=== PATIENT | female | born 1980 | race Caucasian/White ===

== ENCOUNTER 2016-11-26 17:29 | Emergency (ER) | payer SELFPAY ==
[~2016-11-26] VITALS: Ht 160 cm; Wt 172.4 kg
[~2016-11-26 17:29] MED LIST: HYDR-707 PO; PRCD5U PO; TRM50T PO
[2016-11-26] MEDS ORDERED: NS IV 1000 ML 1,000 ML IV ONE (18:28)
--- NOTE | 2016-11-26 18:28 | ED Headache ---
General Chief Complaint: Head/Cervical Problems Stated Complaint: MIGRAINE X2 DAYS Nursing Triage Note: AMB TO ED C/O HEADACHE FOR 3 DAYS TOOK IBUPROFEN TODAY. Nursing Sepsis Screen: No Definite Risk History of Present Illness Time seen by provider: 18:20 Initial Comments Patient reports history of migraines, usually resolves with naproxen. She is currently out of that prescription. Tried ibuprofen 800 mg 2 hours prior to arrival with no resolution of her symptoms. Timing/Duration: constant Severity/Quality: moderate Location: frontal Prior Headaches/Recent Trauma: no recent headache/trauma Associated Symptoms: denies symptoms, No seizures, No sinus infection, No vision changes, other (photophobia) Allergies and Home Medications Allergies Coded Allergies: No Known Allergies (Unverified Allergy, Mild, 01/16/09) Home Medications Naproxen 500 Mg Tablet, 500 MG PO Q12H, #30 Ref 0 Prescribed by: OSWALDO PINO on 11/26/161934 Constitutional: no symptoms reported, see HPI Eyes: See HPI, Photophobia All Other Systems Reviewed Negative Unless Noted: Yes Past Tlxqfzc-Pcokqc-Vttrpj Hx Patient Social History Alcohol Use: Denies Use Recreational Drug Use: No Smoking Status: Current Everyday Smoker Recent Foreign Travel: No Contact w/Someone Who Travel: No Recent Infectious Disease Expo: No Recent Hopitalizations: No Immunizations Up To Date Tetanus Booster (TDap): Less than 5yrs Seasonal Allergies Seasonal Allergies: No Surgeries HX Surgeries: No Respiratory Hx Respiratory Disorders: No Cardiovascular Hx Cardiac Disorders: No Neurological Hx Neurological Disorders: No Reviewed Nursing Assessment Reviewed/Agree w Nursing PMH: Yes Physical Exam Vital Signs Vital Sign - Last 12Hours 11/26/16 17:52 Temp 96.2 Pulse 62 Resp 18 B/P (MAP) 138/80 Pulse Ox 96 Capillary Refill : Less Than 3 Seconds General Appearance: WD/WN, no apparent distress HEENT: PERRL/EOMI, normal ENT inspection, TMs normal, pharynx normal, photophobia (moderate) Neck: non-tender, full range of motion, supple, normal inspection Cardiovascular: normal peripheral pulses, regular rate, rhythm, no murmur Respiratory: chest non-tender, lungs clear, normal breath sounds Gastrointestinal: normal bowel sounds, non tender, soft, other (morbidly obese) Psychiatric: alert, oriented x 3 Crainal Nerves: normal hearing, normal speech, PERRL Coordination/Gait: normal finger to nose, normal gait, negative Romberg's sign Motor/Sensory: no motor deficit, no sensory deficit, no pronator drift Skin: normal color, warm/dry Progress/Results/Core Measures Results/Orders My Orders Orders - OSWALDO PINO Diphenhydramine Injection (Benadryl Inje (11/26/16 18:30) Ketorolac Injection (Toradol Injection) (11/26/16 18:30) Prochlorperazine Injection (Compazine In (11/26/16 18:30) Saline Lock/Iv-Start (11/26/16 18:28) Ns Iv 1000 Ml (Sodium Chloride 0.9%) (11/26/16 18:28) Medications Given in ED Current Medications Medications Dose Ordered Sig/Merari Route Start Time Stop Time Status Last Admin Dose Admin Diphenhydramine HCl 50 mg ONCE ONCE IVP 11/26/16 18:30 11/26/16 18:31 DC 11/26/16 18:42 50 MG Ketorolac Tromethamine 30 mg ONCE ONCE IVP 11/26/16 18:30 11/26/16 18:31 DC 11/26/16 18:43 30 MG Prochlorperazine Edisylate 10 mg ONCE ONCE IV 11/26/16 18:30 11/26/16 18:31 DC 11/26/16 18:40 10 MG Sodium Chloride 1,000 ml @ 0 mls/hr Q0M ONCE IV 11/26/16 18:28 11/26/16 18:30 DC 11/26/16 18:39 1,000 MLS/HR Vital Signs/I&O Vital Sign - Last 12Hours 11/26/16 11/26/16 17:52 19:40 Temp 96.2 Pulse 62 72 Resp 18 18 B/P (MAP) 138/80 Pulse Ox 96 99 Blood Pressure Mean: 99 Progress Note : Time: 18:20 Progress Note Initial evaluation completed, Toradol 30 mg, Compazine 10 mg, and Benadryl 50 mg IV 1929 patient reports improvement in her headache symptoms, she was able to sleep approximately 30 minutes. Departure Impression Impression: Primary Impression: Headache Qualified Codes: G44.211 - Episodic tension-type headache, intractable Disposition: 01 HOME, SELF-CARE Condition: Improved Departure-Patient Inst. Decision time for Depature: 17:00 Referrals: NO,LOCAL PHYSICIAN (PCP) Primary Care Physician Patient Instructions: Migraine Headache (DC), Headache, Adult (DC) Add. Discharge Instructions: Increase water intake. Use naproxen or Excedrin for headaches. Return to emergency department if symptoms worsen, acute mental status changes, or new problems. All discharge instructions reviewed with patient and/or family. Voiced understanding. Scripts Naproxen (Naproxen) 500 Mg Tablet 500 MG PO Q12H, #30 TAB 0 Refills Prov: OSWALDO PINO 11/26/16 OSWALDO PINO Nov 26, 2016 18:28
[2016-11-26] MEDS ORDERED: PROCHLORPERAZINE 10 MG/2ML INJ (COMPAZINE) IV ONE (18:30)
[2016-11-26] MEDS ORDERED: KETOROLAC 30 MG/ML VIAL IVP ONE (18:30)
[2016-11-26] MEDS ORDERED: diphenhydrAMINE 50 MG/ML INJ (BENADRYL) IVP ONE (18:30)
[2016-11-26] MEDS ORDERED: NAPR500T3 PO (19:35)
[2016-11-26 19:40] VITALS: BP 134/90
== END 2016-11-26 19:40 | disposition home or self-care (01) ==
LOC: EDUNIT# 17:29 → ER 17:31
DX: R51 Headache (principal); F17.210 Nicotine dependence, cigarettes, uncomplicated
CPT/HCPCS: 96374; 96375

== ENCOUNTER 2017-04-12 08:49 | Emergency (ER) | payer SELFPAY ==
[~2017-04-12 08:49] MED LIST changes: +NAPR500T4 PO
--- OUTSIDE RECORDS SUMMARY | 2017-04-12 08:54 | XMS REPORT ---
Author Author ZACH DUVALL [facility] Address [address] [place] [address] Care Team Providers Care Employment Specialist/Program Manager Name Role Phone ZACH DUVALL Unavailable PROBLEMS Type Condition ICD9-CM Code TMR91-BI Code Onset Dates Condition Status SNOMED Code Problem Acute upper respiratory infections of unspecified site 465.9 Active 99259027 Problem Acute bronchitis 466.0 Active 58302661 Problem Cervicalgia M54.2 Active 30298147 Problem Intractable migraine without status migrainosus, unspecified migraine type G43.919 Active 377588221 Problem Migraine, unspecified without mention of intractable migraine without mention of status migrainosus 346.90 Active 81000926 Problem Acute sinusitis, unspecified 461.9 Active 52767310 Problem Nonintractable migraine, unspecified migraine type G43.009 Active 11483624 Problem Depressive disorder, not elsewhere classified 311 Active 04564107 ALLERGIES Unknown Allergies SOCIAL HISTORY No smoking Hx information available PLAN OF CARE VITAL SIGNS MEDICATIONS Unknown Medications RESULTS No Results PROCEDURES No Known procedures IMMUNIZATIONS No Known Immunizations
--- OUTSIDE RECORDS SUMMARY | 2017-04-12 08:54 | XMS REPORT ---
Author Author SINDI THAKUR Organization [employer] Address Unknown Phone Unavailable Care Team Providers Care Agent Producer Name Role Phone SINDI THAKUR CP Unavailable Allergies No Known Allergies Problems Problem Type Condition Code Onset Dates Condition Status Problem Migraine, unspecified without mention of intractable migraine without mention of status migrainosus 346.90 Active Problem Intractable migraine without status migrainosus, unspecified migraine type G43.919 Active Problem Nonintractable migraine, unspecified migraine type G43.009 Active Problem Cervicalgia M54.2 Active Problem Acute bronchitis 466.0 Active Problem Depressive disorder, not elsewhere classified 311 Active Problem Acute upper respiratory infections of unspecified site 465.9 Active Problem Acute sinusitis, unspecified 461.9 Active Medications No Known Medications Results No Known Results Summary Purpose [employer] Submission
--- OUTSIDE RECORDS SUMMARY | 2017-04-12 08:55 | XMS REPORT ---
Author Author SINDI THAKUR [facility] Address [address] [place] [address] Care Team Providers Care Shift Lab Technician Name Role Phone SINDI THAKUR Unavailable PROBLEMS Type Condition ICD9-CM Code PGG80-UW Code Onset Dates Condition Status SNOMED Code Assessment Cervicalgia M54.2 Feb, Active 18175645 Problem Depressive disorder, not elsewhere classified 311 Active 16773941 Problem Migraine, unspecified without mention of intractable migraine without mention of status migrainosus 346.90 Active 50674840 Problem Cervicalgia M54.2 Active 81066657 Problem Intractable migraine without status migrainosus, unspecified migraine type G43.919 Active 127081530 Problem Acute sinusitis, unspecified 461.9 Active 69153069 Problem Acute bronchitis 466.0 Active 56840634 Problem Nonintractable migraine, unspecified migraine type G43.009 Active 91222600 Problem Acute upper respiratory infections of unspecified site 465.9 Active 56420142 ALLERGIES Substance Reaction Event Type Date Status N.K.D.A. Unknown Non Drug Allergy Feb, Unknown SOCIAL HISTORY No smoking Hx information available PLAN OF CARE VITAL SIGNS Height 64 in 2016-03-07 Weight 362.8 lbs 2016-03-07 Heart Rate 88 bpm 2016-03-07 Respiratory Rate 18 2016-03-07 BMI 62.27 kg/m2 2016-03-07 Blood pressure systolic 122 mmHg 2016-03-07 Blood pressure diastolic 64 mmHg 2016-03-07 MEDICATIONS Medication Instructions Dosage Frequency Start Date End Date Duration Status Naproxen 500 MG Orally Twice a day 1 tablet 12h Active Migraine Formula 250-250-65 MG Orally every 6 hrs 2 tablets as needed 6h Active Cyclobenzaprine HCl 5 mg Orally Three times a day 1 tablet 8h Feb, Mar, 30 day(s) Active Xanax 0.5 MG Orally one time for mri 1 tablet Feb, Active RESULTS No Results PROCEDURES Procedure Date Ordered Related Diagnosis Body Site Office Visit, Est Pt., Level 3 Mar 07, 2016 IMMUNIZATIONS No Known Immunizations
--- OUTSIDE RECORDS SUMMARY | 2017-04-12 08:55 | XMS REPORT | Continuity of Care Document ---
Author Author [facility] Address Unknown Phone Unavailable Allergies There is no data. Medications There is no data. Problems Date Dx Coded Attending Type Code Diagnosis Diagnosed By 04/01/2008 278.01 OBESITY MORBID 04/01/2008 SINDI THAKUR APRN 278.01 OBESITY MORBID 04/01/2008 ROSAS LIGHT APRN 278.01 OBESITY MORBID 04/01/2008 ROSAS LIGHT APRN 278.01 OBESITY MORBID 04/01/2008 LUCIAN COHN DO 278.01 OBESITY MORBID 06/18/2009 719.46 joint pain, localized in the knee 06/18/2009 724.5 BACKACHE 06/18/2009 SINDI THAKUR APRN 719.46 joint pain, localized in the knee 06/18/2009 SINDI THAKUR APRN 724.5 BACKACHE 06/18/2009 ROSAS LIGHT APRN E 719.46 joint pain, localized in the knee 06/18/2009 ALEXX LIGHT APRNSIE E 724.5 BACKACHE 06/18/2009 HELLALEXX NÚÑEZ APRNSIE E 719.46 JOINT PAIN, LOCALIZED IN THE KNEE 06/18/2009 ALEXX LIGHT APRNSIE E 724.5 BACKACHE 06/18/2009 ALEXX COHN DOA K 719.46 JOINT PAIN, LOCALIZED IN THE KNEE 06/18/2009 COHN ALEXX OLIVASA K 724.5 BACKACHE 01/28/2010 477.9 RHINITIS 01/28/2010 780.60 FEVER, UNSPECIFIED 01/28/2010 786.07 WHEEZING 01/28/2010 786.2 COUGH 01/28/2010 SINDI THAKUR APRN 477.9 RHINITIS 01/28/2010 SINDI THAKUR APRN 780.60 FEVER, UNSPECIFIED 01/28/2010 SINDI THAKUR APRN 786.07 WHEEZING 01/28/2010 SINDI THAKUR APRN 786.2 COUGH 01/28/2010 HELLROSAS NÚÑEZ APRN E 477.9 RHINITIS 01/28/2010 [facility] [employer] [facility] E 780.60 FEVER, UNSPECIFIED 01/28/2010 MARITZALWIG [employer] [facility] E 786.07 WHEEZING 01/28/2010 [facility]LL[employer]IG [employer] [facility] E 786.2 COUGH 01/28/2010 HELLWIG ROSAS SHAH E 477.9 RHINITIS 01/28/2010 [facility] [facility] E 780.60 FEVER, UNSPECIFIED 01/28/2010 [facility]IG [employer] [facility] E 786.07 WHEEZING 01/28/2010 HELLWIG ROSAS SHAH E 786.2 COUGH 01/28/2010 COHN DO, LUCIAN K 477.9 RHINITIS 01/28/2010 COHN DO, LUCIAN K 780.60 FEVER, UNSPECIFIED 01/28/2010 COHN DO, LUCIAN K 786.07 WHEEZING 01/28/2010 COHN DO, LUCIAN K 786.2 COUGH 06/11/2011 465.9 UPPER RESPIRATORY INFECTION 06/11/2011 SINDI THAKUR APRN 465.9 UPPER RESPIRATORY INFECTION 06/11/2011 ROSAS LIGHT APRN 465.9 UPPER RESPIRATORY INFECTION 06/11/2011 ROSAS LIGHT APRN E 465.9 UPPER RESPIRATORY INFECTION 06/11/2011 COHN DO, LUCIAN K 465.9 UPPER RESPIRATORY INFECTION 12/12/2012 461.9 ACUTE SINUSITIS UNSPECIFIED 12/12/2012 466.0 ACUTE BRONCHITIS 12/12/2012 SINDI THAKUR APRN 461.9 ACUTE SINUSITIS UNSPECIFIED 12/12/2012 SINDI THAKUR APRN 466.0 ACUTE BRONCHITIS 12/12/2012 ROSAS LIGHT APRN E 461.9 ACUTE SINUSITIS UNSPECIFIED 12/12/2012 ROSAS LIGHT APRN E 466.0 ACUTE BRONCHITIS 12/12/2012 ROSAS LIGHT APRN E 461.9 ACUTE SINUSITIS UNSPECIFIED 12/12/2012 ROSAS LIHGT APRN E 466.0 ACUTE BRONCHITIS 12/12/2012 COHN DO, LUCIAN K 461.9 ACUTE SINUSITIS UNSPECIFIED 12/12/2012 LUCIAN COHN DO 466.0 ACUTE BRONCHITIS 01/16/2014 ROSAS LIGHT APRN 311 DEPRESSIVE DISORDER NOT ELSEWHERE CLASSIFIED 01/16/2014 ROSAS LIGHT APRN 346.90 MIGRAINE UNSPECIFIED WITHOUT MENTION OF INTRACTABLE MIGRAINE WITHOUT MENTION OF STATUS MIGRAINOSUS 01/16/2014 ROSAS LIGHT APRN 311 DEPRESSIVE DISORDER NOT ELSEWHERE CLASSIFIED 01/16/2014 ROSAS LIGHT APRN 346.90 MIGRAINE UNSPECIFIED WITHOUT MENTION OF INTRACTABLE MIGRAINE WITHOUT MENTION OF STATUS MIGRAINOSUS 01/16/2014 LUCIAN COHN DO 311 DEPRESSIVE DISORDER NOT ELSEWHERE CLASSIFIED 01/16/2014 LUCIAN COHN DO 346.90 MIGRAINE UNSPECIFIED WITHOUT MENTION OF INTRACTABLE MIGRAINE WITHOUT MENTION OF STATUS MIGRAINOSUS Procedures Code Description Performed By Performed On J7613 ALBUTEROL UNIT DOSE FORM INHALED 12/12/2012 J2930 SOLUMEDROL INJ 01/16/2014 J2360 ORPHENADRINE INJECTION 01/16/2014 91144 THERAPUTIC INJ SQ/IM 01/16/2014 67029 THERAPUTIC INJ SQ/IM 01/16/2014 71148 THERAPUTIC INJ SQ/IM 04/02/2014 J1885 TORADOL INJ 04/02/2014 Results There is no data. Encounters ACCT No. Visit Date/Time Discharge Status Pt. Type Provider Facility Loc./Unit Complaint [id number] 04/02/2014 14:19:00 04/02/2014 23:59:59 [facility] Outpatient LUCIAN COHN DO [id number] 02/19/2014 14:40:00 02/19/2014 23:59:59 [facility] Outpatient ROSAS LIGHT APRN [id number] 01/16/2014 09:45:00 01/16/2014 23:59:[address] [facility] Outpatient ROSAS LIGHT APRN [id number] 06/03/2013 16:09:00 06/03/2013 23:59:[address] [facility] Outpatient SINDI THAKUR APRN [id number] 12/12/2012 09:36:00 Document Registration
--- OUTSIDE RECORDS SUMMARY | 2017-04-12 08:55 | XMS REPORT ---
Author Author CAROLINE CLAUDIO Organization [employer] Address Unknown Phone Unavailable Care Team Providers Care Network Associate Name Role Phone CAROLINE CLAUDIO CP Unavailable Allergies, Adverse Reactions, Alerts Substance Reaction Event Type N.K.D.A. Info Not Available Non Drug Allergy Problems Problem Type Condition Code Onset Dates Condition Status Assessment Nausea R11.0 Active Problem Acute upper respiratory infections of unspecified site 465.9 Active Problem Acute sinusitis, unspecified 461.9 Active Problem Nonintractable migraine, unspecified migraine type G43.009 Active Problem Migraine, unspecified without mention of intractable migraine without mention of status migrainosus 346.90 Active Assessment Nonintractable migraine, unspecified migraine type G43.009 Active Problem Acute bronchitis 466.0 Active Problem Depressive disorder, not elsewhere classified 311 Active Medications No Known Medications Procedures Procedure Coding System Code Date PHENERGAN (IM) 25 MG (25 MG/ML) CPT-4 J2550 Feb 03, 2016 Office Visit, Est Pt., Level 3 CPT-4 29656 Feb 03, 2016 Vital Signs Date/Time: Feb 03, 2016 Cardiac Monitoring Heart Rate 92 bpm Weight 356.6 lbs Height 64 in BMI 61.20 Index Blood Pressure Diastolic 86 mmHg Blood Pressure Systolic 122 mmHg Results No Known Results Summary Purpose [employer] Submission
== END 2017-04-12 09:25 | disposition left against medical advice (07) ==
LOC: EDUNIT# 08:49 → ER 08:51
DX: M54.9 Dorsalgia, unspecified (principal)

== ENCOUNTER 2017-06-21 15:58 | Emergency (ER) | payer SELFPAY ==
[~2017-06-21] VITALS: Ht 170.2 cm; Wt 117.9 kg
[~2017-06-21 15:58] MED LIST changes: +NAPR-915 PO; -NAPR500T4 PO
--- OUTSIDE RECORDS SUMMARY | 2017-06-21 16:04 | XMS REPORT | Continuity of Care Document ---
Author Author [facility] Address Unknown Phone Unavailable Allergies There is [...] NÚÑEZ APRN E 477.9 RHINITIS 01/28/2010 [facility] [facility] E 780.60 FEVER, UNSPECIFIED 01/28/2010 MARITZALWIG [facility] [employer] [facility] E 786.07 WHEEZING 01/28/2010 HELLWIG [facility] [employer] [facility] E 786.2 COUGH 01/28/2010 HELLWIG ROSAS SHAH E 477.9 RHINITIS 01/28/2010 [facility] [facility] E 780.60 FEVER, UNSPECIFIED 01/28/2010 HELLWIG [facility] [facility] E 786.07 WHEEZING 01/28/2010 HELLWIG ROSAS [...] LIGHT APRN E 466.0 ACUTE BRONCHITIS 12/12/2012 COHN [...] SOLUMEDROL INJ 01/16/2014 J2360 ORPHENADRINE INJECTION 01/16/2014 83101 THERAPUTIC INJ SQ/IM 01/16/2014 13845 THERAPUTIC INJ SQ/IM 01/16/2014 94784 THERAPUTIC INJ SQ/IM 04/02/2014 J1885 TORADOL INJ 04/02/2014 Results There is no data. Encounters ACCT No. Visit Date/Time Discharge Status Pt. Type Provider Facility Loc./Unit Complaint [id number] 04/02/2014 14:19:00 04/02/2014 23:59:59 [facility] Outpatient LUCIAN COHN DO [id number] 02/19/2014 14:40:00 02/19/2014 23:59:59 [facility] Outpatient ROSAS LIGHT APRN [id number] 01/16/2014 09:45:00 01/16/2014 23:59:59 [facility] Outpatient ROSAS LIGHT APRN [id number] 06/03/2013 16:09:00 06/03/2013 23:59:59 [facility] Outpatient SINDI THAKUR APRN [id number] 12/12/2012 09:36:00 Document Registration
--- NOTE | 2017-06-21 17:24 | ED General ---
General Chief Complaint: Upper Extremity Stated Complaint: LEFT PINKY FINGER INJ Nursing Triage Note: pt reports injury to l pinky finger nail while at work today. Nursing Sepsis Screen: No Definite Risk Source of Information: Patient Exam Limitations: No Limitations History of Present Illness Date Seen by Provider: Jun 21, 2017 Time Seen by Provider: 17:24 Allergies and Home Medications Allergies Coded Allergies: No Known Allergies (Unverified Allergy, Mild, 01/16/09) Home Medications Naproxen 500 Mg Tablet, 500 MG PO Q12H Prescribed by: OSWALDO PINO on 11/26/16 193 Past Zuflfzz-Olfevm-Gojkjf Hx Patient Social History Alcohol Use: Denies Use Recreational Drug Use: No Smoking Status: Former Smoker Former Smoker, Quit: Feb 13, 2016 Recent Foreign Travel: No Contact w/Someone Who Travel: No Recent Infectious Disease Expo: No Recent Hopitalizations: No Physical Abuse: No Sexual Abuse: No Mistreated: No Fear: No Immunizations Up To Date Tetanus Booster (TDap): Less than 5yrs Seasonal Allergies Seasonal Allergies: No Surgeries History of Surgeries: Yes (neck) Surgeries: Orthopedic, Tubal Ligation Respiratory History of Respiratory Disorde: No Cardiovascular History of Cardiac Disorders: No Neurological History of Neurological Disord: No Genitourinary History of Genitourinary Disor: No Gastrointestinal History of Gastrointestinal Di: No Musculoskeletal History of Musculoskeletal Dis: No Endocrine History of Endocrine Disorders: No HEENT History of HEENT Disorders: No Cancer History of Cancer: No Psychosocial History of Psychiatric Problem: No Suicide Risk Score: 0 Blood Transfusions History of Blood Disorders: No Physical Exam Vital Signs Vital Signs - First Documented 06/21/17 16:14 Temp 96.7 Pulse 94 Resp 20 B/P (MAP) 135/97 (110) Pulse Ox 97 Capillary Refill : Less Than 3 Seconds Progress/Results/Core Measures Suspected Sepsis Recent Fever Within 48 Hours: No Infection Criteria Present: None New/Unexplained Altered Menta: No Sepsis Screen: No Definite Risk Sepsis Diagnosis: SIRS Temperature:96.7 Pulse: 94 Respiratory Rate: 20 Blood Pressure 135 /97 Mean: 110 Results/Orders Vital Signs/I&O Vital Sign - Last 12Hours 06/21/17 16:14 Temp 96.7 Pulse 94 Resp 20 B/P (MAP) 135/97 (110) Pulse Ox 97 Capillary Refill : Less Than 3 Seconds Blood Pressure Mean: 110 Departure Impression Impression: Primary Impression: Injury to fingernail Disposition: 01 HOME, SELF-CARE Condition: Improved Departure-Patient Inst. Decision time for Depature: 17:30 Referrals: NO,LOCAL PHYSICIAN (PCP/Family) Primary Care Physician Patient Instructions: NAIL INJURY Add. Discharge Instructions: All discharge instructions reviewed with patient and/or family. Voiced understanding. Tylenol extra strength [id number] as directed for pain. Ibuprofen 800 mg by mouth every 8 hours as needed for pain. Ice pack as needed. Finger splint as instructed. See your rotating equipment specialist for removal of the fake nail. Follow-up with your primary care provider if needed. Return in the emergency department for purulent drainage, fever, or any other concerns. Work/School Note: Local Medical Staff Listing GENESIS ROSADO Jun 21, 2017 17:24
[2017-06-21 17:53] VITALS: BP 142/81
== END 2017-06-21 17:52 | disposition home or self-care (01) ==
LOC: EDUNIT# 15:58 → ER 16:00
DX: S69.92XA Unspecified injury of left wrist, hand and finger(s), initial encounter (principal); Z87.891 Personal history of nicotine dependence; Z98.51 Tubal ligation status; X58.XXXA Exposure to other specified factors, initial encounter; Y92.59 Other trade areas as the place of occurrence of the external cause
CPT/HCPCS: 29130

== ENCOUNTER → 2017-10-31 | Outpatient (REF) ==
--- NOTE | 2017-10-31 13:15 | Diagnostic Imaging Report ---
EXAMINATION: Left knee radiographs, 3 views. COMPARISON: None. HISTORY: 37-year-old female, injury. Left knee pain. FINDINGS: There is no identified knee joint effusion. The joint spaces are well-preserved. There is no prominent osteophyte formation. There is no identified acute fracture. There is no radiopaque foreign body. IMPRESSION: Unremarkable left knee radiographs. Dictated by: Dictated on workstation # [id number]
== END | disposition home or self-care (01) ==
LOC: OCC 11:48
PROVIDERS: ATTEND Nurse Practitioner Family
CPT/HCPCS: 73562

== ENCOUNTER 2018-08-19 03:20 | Emergency (ER) | payer SELFPAY ==
[~2018-08-19] VITALS: Ht 162.6 cm; Wt 93.9 kg
--- OUTSIDE RECORDS SUMMARY | 2018-08-19 03:26 | XMS REPORT ---
Author Author ANYA TRONCOSO Organization [facility] Address [address] [place] [address] Care Team Providers Care Customer Success Director Name Role Phone ANYA TRONCOSO Unavailable PROBLEMS Type Condition ICD9-CM Code QXH51-SU Code Onset Dates Condition Status SNOMED Code Problem Acute bronchitis 466.0 Active 00388024 Problem Acute sinusitis, unspecified 461.9 Active 82904324 Problem Acute upper respiratory infections of unspecified site 465.9 Active 60345262 Problem Menstrual irregularity N92.6 Active 03808614 Problem Cervicalgia M54.2 Active 55811130 Problem Depressive disorder, not elsewhere classified 311 Active 02894582 Problem Migraine, unspecified without mention of intractable migraine without mention of status migrainosus 346.90 Active 18176189 Problem Intractable migraine without status migrainosus, unspecified migraine type G43.919 Active 499901148 Problem Nonintractable migraine, unspecified migraine type G43.009 Active 77233220 ALLERGIES No Known Allergies ENCOUNTERS Encounter Location Date Diagnosis [facility] [id number] [place] [address] Jun, Viral URI J06.9 and BMI 50.0-59.9, adult Z68.43 [facility] [address] [place] [address] Jun, [facility] [id number] [place] [address] Jun, Paronychia of left little finger L03.012 [facility] [id number] [place] [address]35 Mar, Dysuria R30.0 ; Menstrual irregularity N92.6 ; Lumbar back pain M54.5 and BMI 50.0-59.9, adult Z68.43 [place] [address] [address] Jan, [place] [address] [address] 19 Dec, 2016 Routine gynecological examination Z01.419 ; Screening for breast cancer Z12.31 ; Routine screening for STI (sexually transmitted infection ) Z11.3 ; Trichomoniasis of vagina A59.01 and Group B streptococcal infection A49.[address] [id number] Jun, Pain around right eye H57.11 and Itch of eye, right H57.[address] [id number] Jun, Discomfort of right ear H92.[address] [id number] Feb, Cervicalgia M54.2 and Intractable migraine without status migrainosus, unspecified migraine type G43.919 [place] [id number] [place] [address] Feb, [address] [id number] Feb, Cervicalgia M54.2 [place] [id number] [place] [id number] Feb, Intractable migraine without status migrainosus, unspecified migraine type G43.919 and Diarrhea, unspecified type R19.7 [place] [address] [address] [id number] [place] [address]990[address] Jan, [place] [id number] [place] [address] [id number] Jan, Nonintractable migraine, unspecified migraine type G43.009 and Nausea R11.0 [place] [address] [address] 14 Jul, 2014 [place] [address] [address] Jul, [facility] [address] [id number] [place] [id number] Mar, [facility] [address] [facility] [id number] [address] Mar, [facility] [address] [id number] [place] [id number] Mar, [facility] [address] [facility] [id number] [address] Mar, [facility] [address] [id number] [place] [id number] Feb, [facility] [address] [facility] [id number] [address] Feb, [facility] [address] [facility] [id number] [place] [id number] Jan, [facility] [address]65[place] [address] Jan, [facility] [address] [facility] [id number][place] [id number] Jan, [facility] [address]65100[place] [address] Jan, [facility] [address] [facility] [id number][place] [id number] Dec, [facility] [address] [facility] [id number] [address] Dec, [facility] [address] [facility] [id number][place] [id number] Jul, [facility] [address] [facility] [id number] [address] Jul, [facility] [address] [facility] [id number], [place] [id number] Nov, [facility] [address] [facility] [id number][place] [address] Nov, [facility] [address] [facility] [id number] [address] May, [facility] [address] [facility] [id number] [place] [address] Jan, IMMUNIZATIONS No Known Immunizations SOCIAL HISTORY Never Assessed REASON FOR VISIT Cough, itchy throat, headache - CHRYSTAL Bhatt, Symptoms started on Monday after taking a dose of bactrim PLAN OF CARE Activity Details Follow Up prn Reason: VITAL SIGNS Height 64 in 2017-06-27 Weight 348.8 lbs 2017-06-27 Temperature 98.3 degrees Fahrenheit 2017-06-27 Heart Rate 88 bpm 2017-06-27 Respiratory Rate 20 2017-06-27 BMI 59.86 kg/m2 2017-06-27 Blood pressure systolic 126 mmHg 2017-06-27 Blood pressure diastolic 80 mmHg 2017-06-27 MEDICATIONS Medication Instructions Dosage Frequency Start Date End Date Duration Status Bactrim DS 800-160 MG Orally Twice a day 1 tablet 12h Jun,Jun 10 day(s) Not-Taking Naproxen 500 MG Orally Twice a day 1 tablet 12h Not-Taking RESULTS No Results PROCEDURES No Known procedures INSTRUCTIONS MEDICATIONS ADMINISTERED No Known Medications MEDICAL (GENERAL) HISTORY Type Description Date Medical History headache Medical History obesity Surgical History tubal ligation 2001 Surgical History fatty tumor removed from neck 1998 Hospitalization History childbirth only
--- OUTSIDE RECORDS SUMMARY | 2018-08-19 03:26 | XMS REPORT ---
Author Author Migration, Doctor Organization [facility] Address Unknown Phone Unavailable Care Team Providers Care Grinder Hand Name Role Phone Migration, Doctor Unavailable Unavailable PROBLEMS Type Condition ICD9-CM Code [id number] Code Onset Dates Condition Status SNOMED Code Problem Acute bronchitis 466.0 Active 87666211 Problem Acute upper respiratory infections of unspecified site 465.9 Active 11331861 Problem Acute sinusitis, unspecified 461.9 Active 90013782 Problem Cervicalgia M54.2 Active 61347295 Problem Menstrual irregularity N92.6 Active 78078350 Problem Migraine, unspecified without mention of intractable migraine without mention of status migrainosus 346.90 Active 07822708 Problem Depressive disorder, not elsewhere classified 311 Active 99842327 Problem Nonintractable migraine, unspecified migraine type G43.009 Active 32675043 Problem Intractable migraine without status migrainosus, unspecified migraine type G43.919 Active 632006632 ALLERGIES No Information ENCOUNTERS Encounter Location Date Diagnosis [facility] [address] [place] [address] Jun, Acute right-sided low back pain without sciatica M54.5 and Morbid obesity E66.01 [facility] [id number] [place] [address] Apr, Fever R50.9 ; Influenza A J10.1 and BMI 50.0-59.9, adult Z68.43 [facility] [address] [place] [id number] [place] [address]457 [address]95 Jan, [facility] [address] [address] Jan, Bronchitis J40 ; Spasmodic cough R05 and Wheezing R06.2 [facility] [address] [place] [address] Jun, Viral URI J06.9 and BMI 50.0-59.9, adult Z68.43 [facility] [place] [address] [place] [address] [id number] [place] [address] Jun, [facility] [place] [address] [address] Jun, Paronychia of left little finger L03.012 [facility] [address] [address] Mar, Dysuria R30.0 ; Menstrual irregularity N92.6 ; Lumbar back pain M54.5 and BMI 50.0-59.9, adult Z68.43 [place] [address] [address] Jan, [address] [address] Dec, Routine gynecological examination Z01.419 ; Screening for breast cancer Z12.31 ; Routine screening for STI (sexually transmitted infection ) Z11.3 ; Trichomoniasis of vagina A59.01 and Group B streptococcal infection A49.[address] [id number] Jun, 2016 Pain around right eye H57.11 and Itch of eye, right H57.[address] [id number] Jun, Discomfort of right ear H92.[address] [id number] Feb, Cervicalgia M54.2 and Intractable migraine without status migrainosus, unspecified migraine type G43.[address] [address] Feb, [address] [id number] 14 Feb, 2016 Cervicalgia M54.[address] [id number] Feb, Intractable migraine without status migrainosus, unspecified migraine type G43.919 and Diarrhea, unspecified type R19.7 [facility] [address] [place] [id number] [place] [address] Jan, [facility] [id number] [place] [address] [id number] Jan, Nonintractable migraine, unspecified migraine type G43.009 and Nausea R11.0 [facility] [address] [place] [address] [id number] [place] [address] 563808- 7759 Jul, [facility] [address] [id number] [place] [address]31[address] 4079 Jul, [facility] [address] [place] [address] [id number] Mar, [facility] [address] [place] [address] [id number] [place] [address] 184398[address] 76[address] Mar, [facility] [address] [place] [address] [id number] [place] [address] [id number] Mar, [facility] [address] [place] [address] 59243- 6209 Mar, [facility] [id number] [place] [address] [id number] Feb, [facility] [address] [place] [address] 937748- 9536 Feb, [facility] [id number] [place] [id number] Jan, [facility] [address]00565100[place] [address] Jan, [facility] [address] [place] [address] [id number] Jan, [facility] [address] [place] [address] 98045- 5[address] Jan, [facility] [id number] [place] [id number] Dec, [facility] [address] [facility] [id number] [place] [address] Dec, [facility] [address] [facility] [id number] [place] [id number] Jul, [facility] [address] [place] [address] [id number] [address] Jul, [facility] [address] [facility] [id number] [place] [id number] Nov, [facility] [address] [facility] [id number] [place] [address] Nov, [facility] [address] [facility] [id number] [place] [address]- [address] May, [facility] [address] [place] [address] [id number] [address] Jan, IMMUNIZATIONS No Known Immunizations SOCIAL HISTORY Never Assessed REASON FOR VISIT [facility] [place] VITAL SIGNS MEDICATIONS Medication Instructions Dosage Frequency Start Date End Date Duration Status Augmentin 875-125 mg 1 tablet by Oral route 2 times per day for 10 day(s) Nov, Active PredniSONE 20 mg 2 tablet by Oral route 1 time per day for 3 day(s) Nov, Active Phenergan 25 mg 1 tablet by Oral route 1 time per day Mar, Active Zoloft 50 mg 1 tablet by Oral route 1 time per day 1/2 table x7 days and then 1 full tab. Mar, Active RESULTS No Results PROCEDURES No Known procedures INSTRUCTIONS MEDICATIONS ADMINISTERED No Known Medications MEDICAL (GENERAL) HISTORY Type Description Date Medical History headache Medical History obesity Surgical History tubal ligation 2001 Surgical History fatty tumor removed from neck 1998 Hospitalization History childbirth only
--- OUTSIDE RECORDS SUMMARY | 2018-08-19 03:26 | XMS REPORT ---
Author Author CAROLINE CLAUDIO Organization [facility] Address [address] [place] [address] Care Team Providers Care Electronic Drafter Name Role Phone CAROLINE CLAUDIO Unavailable PROBLEMS Type Condition ICD9-CM Code OLB13-YE Code Onset Dates Condition Status SNOMED Code Problem Acute bronchitis 466.0 Active 33478068 Problem Acute sinusitis, unspecified 461.9 Active 16542388 Problem Acute upper respiratory infections of unspecified site 465.9 Active 70381681 Problem Menstrual irregularity N92.6 Active 47679162 Problem Cervicalgia M54.2 Active 27871768 Problem Depressive disorder, not elsewhere classified 311 Active 49522287 Problem Migraine, unspecified without mention of intractable migraine without mention of status migrainosus 346.90 Active 81262608 Problem Intractable migraine without status migrainosus, unspecified migraine type G43.919 Active 975926603 Problem Nonintractable migraine, unspecified migraine type G43.009 Active 75868710 ALLERGIES No Information ENCOUNTERS Encounter Location Date Diagnosis [facility] [id number] [place] [address] Jan, [facility] [address] [id number] [place] [address]96 [address] Jan, Bronchitis J40 ; Spasmodic cough R05 and Wheezing R06.2 [facility] [id number] [place] [address]173 -8477 Jun, Viral URI J06.9 and BMI 50.0-59.9, adult Z68.43 [facility] [id number] [place] [address]447 -2098 Jun, [facility] [address] [id number] [place] [address] 56137 -7702 Jun, Paronychia of left little finger L03.012 [facility] [address] [place] [id number] [place] [address]87 Mar, Dysuria R30.0 ; Menstrual irregularity N92.6 ; Lumbar back pain M54.5 and BMI 50.0-59.9, adult Z68.43 [facility] [address] [place] [id number] [place] [address]5668- [address]95 Jan, [place] [address] [address] Dec, Routine gynecological examination Z01.419 ; Screening for breast cancer Z12.31 ; Routine screening for STI (sexually transmitted infection ) Z11.3 ; Trichomoniasis of vagina A59.01 and Group B streptococcal infection A49.1 [place] [id number] [place] [id number] Jun, Pain around right eye H57.11 and Itch of eye, right H57.[address] [id number] Jun, Discomfort of right ear H92.[address] [id number] Feb, Cervicalgia M54.2 and Intractable migraine without status migrainosus, unspecified migraine type G43.919 [place] [address] [place] [address]898- 1673 Feb, [place] [id number] [place] [address] [id number] Feb, Cervicalgia M54.2 [place] [id number] [place] [address] [id number] Feb, Intractable migraine without status migrainosus, unspecified migraine type G43.919 and Diarrhea, unspecified type R19.7 [facility] [address] [place] [address]99- 8438 Jan, [address] [id number] Jan, Nonintractable migraine, unspecified migraine type G43.009 and Nausea R11.0 [facility] [address]00565100[place], [place] [address] Jul, [facility] [address] [place] [id number] [place] [address]94- 37[address] Jul, [facility] [id number] [place] [address] [id number] Mar, [facility] [address] [place] [id number] [place] [address] 64890- 6004 Mar, [facility] [id number] [place] [address] [id number] Mar, [facility] [address] [place] [id number] [place] [address]35- 5549 Mar, [facility] [id number] [place] [address] [id number] Feb, [facility] [address] [place] [address] 28925- 0758 Feb, [facility] [id number] [place] [address] [id number] Jan, [facility] [address]00565100[place], [place] [address]- 6[address] Jan, [facility] [id number][place] [id number] Jan, [facility] [address]65100[place], [place] [address]326 Jan, [facility] [id number], [place] [id number] Dec, [facility] [address] [place] [id number] [place] [address]28- 8[address] Dec, [facility] [id number][place] [id number] Jul, [facility] [address] [place] [id number] [place] [address] 08965- 1330 Jul, [facility] [address] [facility] [id number] [place] [id number] Nov, [facility] [address] [facility] [id number] [address] Nov, [facility] [address] [facility] [id number] [place] [address]- 0[address] May, [facility] [address] [facility] [id number] [address]- 58[address] Jan, IMMUNIZATIONS No Known Immunizations SOCIAL HISTORY Never Assessed REASON FOR VISIT Nebulizer PLAN OF CARE VITAL SIGNS MEDICATIONS Unknown Medications RESULTS No Results PROCEDURES No Known procedures INSTRUCTIONS MEDICATIONS ADMINISTERED No Known Medications MEDICAL (GENERAL) HISTORY Type Description Date Medical History headache Medical History obesity Surgical History tubal ligation 2001 Surgical History fatty tumor removed from neck 1998 Hospitalization History childbirth only
--- OUTSIDE RECORDS SUMMARY | 2018-08-19 03:26 | XMS REPORT ---
Author Author CAROLINE CLAUDIO Organization [facility] Address [address] [place] [address] Care Team Providers Care Abrasive Water Jet Cutter Operator Name Role Phone CAROLINE CLAUDIO Unavailable PROBLEMS Type Condition ICD9-CM Code SUP95-OD Code Onset Dates Condition Status SNOMED Code Problem Acute bronchitis 466.0 Active 06740274 Problem Acute sinusitis, unspecified 461.9 Active 67008493 Problem Acute upper respiratory infections of unspecified site 465.9 Active 18314738 Problem Menstrual irregularity N92.6 Active 90585755 Problem Cervicalgia M54.2 Active 49556317 Problem Depressive disorder, not elsewhere classified 311 Active 76327546 Problem Migraine, unspecified without mention of intractable migraine without mention of status migrainosus 346.90 Active 49594258 Problem Intractable migraine without status migrainosus, unspecified migraine type G43.919 Active 225046753 Problem Nonintractable migraine, unspecified migraine type G43.009 Active 77903247 ALLERGIES No Known Allergies ENCOUNTERS Encounter Location Date Diagnosis [facility] [id number] [place] [address]57 [address]86 Jan, [facility] [id number] [place] [address]894 Jan, Bronchitis J40 ; Spasmodic cough R05 and Wheezing R06.2 [facility] [id number] [place] [address] 82334 -7527 Jun, Viral URI J06.9 and BMI 50.0-59.9, adult Z68.43 [facility] [id number] [place] [address] 24232 -6561 Jun, [facility] [id number] [place] [address] 01696 -2601 Jun, Paronychia of left little finger L03.012 [facility] [address] [id number] [place] [address]25 -8326 Mar, Dysuria R30.0 ; Menstrual irregularity N92.6 ; Lumbar back pain M54.5 and BMI 50.0-59.9, adult Z68.43 [facility] [id number] [place] [address] 76328- 5691 Jan, [place] [address] [address] Dec, Routine gynecological examination Z01.419 ; Screening for breast cancer Z12.31 ; Routine screening for STI (sexually transmitted infection ) Z11.3 ; Trichomoniasis of vagina A59.01 and Group B streptococcal infection A49.1 [place] [id number] [place] [id number] Jun, Pain around right eye H57.11 and Itch of eye, right H57.[address] [id number] Jun, Discomfort of right ear H92.[address] [id number] Feb, Cervicalgia M54.2 and Intractable migraine without status migrainosus, unspecified migraine type G43.919 [place] [address] [place] [address]503- 6400 Feb, [place] [id number] [place] [address] [id number] Feb, Cervicalgia M54.2 [place] [id number] [place] [address] [id number] Feb, Intractable migraine without status migrainosus, unspecified migraine type G43.919 and Diarrhea, unspecified type R19.7 [facility] [address] [place] [address] 48349- 6454 Jan, [address] [id number] Jan, Nonintractable migraine, unspecified migraine type G43.009 and Nausea R11.0 [facility] [place] [facility] [id number] [place] [address] 89704- 9540 Jul, [facility] [place] [facility] [id number] [place] [address] 90466- 3066 Jul, [facility] [id number] [place] [address] [id number] Mar, [facility] [place] [facility] [id number] [place] [address] 37828- 3800 Mar, [facility] [id number] [place] [address] [id number] Mar, [facility] [place] [facility] [id number] [place] [address] 91614- 2696 Mar, [facility] [id number] [place] [address] [id number] Feb, [facility] [id number] [place] [address] 51929- 5647 Feb, [facility] [id number] [place] [address] [id number] Jan, [facility] [address] [place] [address] 24917- 9728 Jan, [facility] [id number] [id number] Jan, [facility] [place] [facility] [address] [address] Jan, [facility] [id number][place] [id number] Dec, [facility] [place] [facility] [id number] [place] [address] 06357- 4619 Dec, [facility] [id number][place] [id number] Jul, [facility] [place] [facility] [id number] [place] [address] 40590- 6574 Jul, [facility] [address] [facility] [id number] [place] [phone] Nov, [facility] [address] [facility] [id number][place] [address] Nov, [facility] [address] [facility] [id number], [place] 675712- 77[address] May, [facility] [address] [facility] [id number][place]72[place]- [address] Jan, IMMUNIZATIONS Vaccine Route Administration Date Status SOLUMEDROL (UP TO 125 MG) IM Intramuscular Feb 12, 2018 Administered SOCIAL HISTORY Never Assessed REASON FOR VISIT cough/congestion x3-4 days- wheezing JStrasserRN PLAN OF CARE Activity Details Follow Up prn Reason: VITAL SIGNS Height 64 in 2018-02-12 Weight 341.6 lbs 2018-02-12 Temperature 97.3 degrees Fahrenheit 2018-02-12 Heart Rate 90 bpm 2018-02-12 Respiratory Rate 22 2018-02-12 Oximetry 93 % 2018-02-12 BMI 58.63 kg/m2 2018-02-12 Blood pressure systolic 100 mmHg 2018-02-12 Blood pressure diastolic 70 mmHg 2018-02-12 MEDICATIONS Medication Instructions Dosage Frequency Start Date End Date Duration Status PredniSONE 20 mg Orally Once a day 3 tablets 24h Jan, Jan, 7 days Active Zithromax Z-Luiz 250 MG Orally Once a day as directed 24h Jan, Jan, 5 day(s) Active Albuterol Sulfate (2.5 MG/3ML) 0.083% Inhalation Three times a day as needed 3 ml as needed Jan, Active Naproxen 500 MG Orally Twice a day 1 tablet 12h Not-Taking Mucinex 600 MG Orally every 12 hrs 1 tablet as needed 12h Active Meena-Miles Pls Night Cld/Flu 5-6.25-10-325 MG Orally Four times a day 2 capsules as needed 6h Active Albuterol Sulfate HFA 108 (90 Base) MCG/ACT Inhalation every 6 hrs 2 puffs as needed 6h Jan, Active RESULTS No Results PROCEDURES Procedure Date Ordered Result Body Site SOLUMEDROL (UP TO 125 MG) Feb 12, 2018 THER/PROPH/DIAG INJ, SC/IM Feb 12, 2018 INSTRUCTIONS MEDICATIONS ADMINISTERED No Known Medications MEDICAL (GENERAL) HISTORY Type Description Date Medical History headache Medical History obesity Surgical History tubal ligation 2001 Surgical History fatty tumor removed from neck 1998 Hospitalization History childbirth only
--- OUTSIDE RECORDS SUMMARY | 2018-08-19 03:26 | XMS REPORT ---
Demographics Address [address] [place] [address] Preferred Language Unknown Marital Status Unknown Moravian Affiliation Unknown Race Unknown Ethnic Group Unknown Author Author CHANCE ULLOA Organization [facility] Address [address] [place] [address] Care Team Providers Care Malthouse Laborer Name Role Phone CHANCE ULLOA Unavailable PROBLEMS Type Condition ICD9-CM Code ZGQ33-SW Code Onset Dates Condition Status SNOMED Code Problem Acute bronchitis 466.0 Active 13813978 Problem Acute sinusitis, unspecified 461.9 Active 17855733 Problem Acute upper respiratory infections of unspecified site 465.9 Active 95391685 Problem Menstrual irregularity N92.6 Active 43275835 Problem Cervicalgia M54.2 Active 94878910 Problem Depressive disorder, not elsewhere classified 311 Active 20155495 Problem Migraine, unspecified without mention of intractable migraine without mention of status migrainosus 346.90 Active 65335428 Problem Intractable migraine without status migrainosus, unspecified migraine type G43.919 Active 217192170 Problem Nonintractable migraine, unspecified migraine type G43.009 Active 33880139 ALLERGIES No Information ENCOUNTERS Encounter Location Date Diagnosis [facility] [address] [place] [address]70 [address]60 Jun, Viral URI J06.9 and BMI 50.0-59.9, adult Z68.43 [facility] [id number] [place] [address] 81485 -5264 Jun, [facility] [id number] [place] [address] 64468 -1428 Jun, Paronychia of left little finger L03.012 [facility] [address] [place] [id number] [place] [address] 80670 -3748 Mar, Dysuria R30.0 ; Menstrual irregularity N92.6 ; Lumbar back pain M54.5 and BMI 50.0-59.9, adult Z68.43 [place] [address] [place] [address] [id number] [place] [address] 00292- 8547 Jan, [place] [address] [address] 19 Dec, 2016 Routine gynecological examination Z01.419 ; Screening for breast cancer Z12.31 ; Routine screening for STI (sexually transmitted infection ) Z11.3 ; Trichomoniasis of vagina A59.01 and Group B streptococcal infection A49.[address] [id number] Jun, Pain around right eye H57.11 and Itch of eye, right H57.[address] [id number] Jun, Discomfort of right ear H92.[address] [id number] Feb, Cervicalgia M54.2 and Intractable migraine without status migrainosus, unspecified migraine type G43.919 [place] [address] [place] [address] [id number] [place] [address] 14661- 3190 Feb, [address] [id number] Feb, Cervicalgia M54.2 [place] [id number] [place] [address] [id number] Feb, Intractable migraine without status migrainosus, unspecified migraine type G43.919 and Diarrhea, unspecified type R19.7 [place] [address] [place] [address] 17717- 1858 Jan, [place] [id number] [place] [address] [id number] Jan, Nonintractable migraine, unspecified migraine type G43.009 and Nausea R11.0 [place] [address] [address] Jul, [place] [address] [address]- 6701 Jul, [facility] [address] [id number] [place] [id number] Mar, [facility] [place] [facility] [address] [facility] [id number] [place] [address] Mar, [facility] [address] [id number] [place] [id number] Mar, [facility] [place] [facility] [address] [facility] [id number][place] [address] Mar, [facility] [address] [id number] [place] [id number] Feb, [facility] [place] [facility] [address] [facility] [id number], [place] [address]- 6686 Feb, [facility] [address] [facility] [id number] [place] [id number] Jan, [facility] [address], [place] [address] Jan, [facility] [address] [facility] [id number][place] [id number] Jan, [facility] [place] [facility] [address] [address] 240[address] Jan, [facility] [address] [facility] [id number][place] [id number] Dec, [facility] [place] [facility] [address] [place] [id number], [place] [address]- 7[address] Dec, [facility] [address] [facility] [id number][place] [id number] Jul, [facility] [place] [facility] [address] [facility] [id number][place] [address] Jul, [facility] [address] [facility] [id number][place] [id number] Nov, [facility] [place] [facility] [address] [facility] [id number], [place] [address]- 53[address] Nov, [facility] [place] [facility] [address] [facility] [id number][place] [address]- 2546 May, [facility] [address] [facility] [id number] [place] [address]- 2546 Jan, IMMUNIZATIONS No Known Immunizations SOCIAL HISTORY Never Assessed REASON FOR VISIT Med reaction PLAN OF CARE VITAL SIGNS MEDICATIONS Medication Instructions Dosage Frequency Start Date End Date Duration Status Clindamycin HCl 150 MG Orally every 8 hrs 1 capsule 8h Jun, 07 days Active RESULTS No Results PROCEDURES No Known procedures INSTRUCTIONS MEDICATIONS ADMINISTERED No Known Medications MEDICAL (GENERAL) HISTORY Type Description Date Medical History headache Medical History obesity Surgical History tubal ligation 2001 Surgical History fatty tumor removed from neck 1998 Hospitalization History childbirth only
--- OUTSIDE RECORDS SUMMARY | 2018-08-19 03:26 | XMS REPORT ---
Author Author Migration, Doctor Organization [facility] Address Unknown Phone Unavailable Care Team Providers Care Labor Contractor Name Role Phone Migration, Doctor Unavailable Unavailable PROBLEMS Type Condition ICD9-CM Code [id number] Code Onset Dates Condition Status SNOMED Code Problem Acute bronchitis 466.0 Active 21400083 Problem Acute upper respiratory infections of unspecified site 465.9 Active 07950773 Problem Acute sinusitis, unspecified 461.9 Active 48488784 Problem Cervicalgia M54.2 Active 09739730 Problem Menstrual irregularity N92.6 Active 68982977 Problem Migraine, unspecified without mention of intractable migraine without mention of status migrainosus 346.90 Active 17610611 Problem Depressive disorder, not elsewhere classified 311 Active 75631393 Problem Nonintractable migraine, unspecified migraine type G43.009 Active 81045972 Problem Intractable migraine without status migrainosus, unspecified migraine type G43.919 Active 750830027 ALLERGIES No Information ENCOUNTERS Encounter Location Date Diagnosis [facility] [address] [place] [address]32 [address]6529 Jun, Acute right-sided low back pain without sciatica M54.5 and Morbid obesity E66.01 [facility] [id number] [place] [address]30 -[address]32 Apr, Fever R50.9 ; Influenza A J10.1 and BMI 50.0-59.9, adult Z68.43 [facility] [address] [place] [id number] [place] [address] 77881 -0759 Jan, [facility] [address] [address] Jan, Bronchitis J40 ; Spasmodic cough R05 and Wheezing R06.2 [facility] [address] [place] [address] 23942 -8249 Jun, Viral URI J06.9 and BMI 50.0-59.9, adult Z68.43 [facility] [place] [id number] [place] [address]154 -7633 Jun, [facility] WALK IN [place] [address] 33147 -[address] Jun, Paronychia of left little finger L03.012 [facility] WALK IN [address] [address] Mar, Dysuria R30.0 ; Menstrual irregularity N92.6 ; Lumbar back pain M54.5 and BMI 50.0-59.9, adult Z68.43 [place] [address] [address] 4251 Jan, [address] [address] Dec, Routine gynecological examination Z01.419 ; Screening for breast cancer Z12.31 ; Routine screening for STI (sexually transmitted infection ) Z11.3 ; Trichomoniasis of vagina A59.01 and Group B streptococcal infection A49.[address] [id number] 31 Jun, 2016 Pain around right eye H57.11 and Itch of eye, right H57.[address] [id number] Jun, Discomfort of right ear H92.[address] [id number] Feb, Cervicalgia M54.2 and Intractable migraine without status migrainosus, unspecified migraine type G43.[address] [address]- 6407 Feb, [address] [id number] Feb, 2016 Cervicalgia M54.[address] [id number] Feb, Intractable migraine without status migrainosus, unspecified migraine type G43.919 and Diarrhea, unspecified type R19.7 [facility] [id number] [place] [address]- 3710 Jan, [facility] [id number] [place] [address] [id number] Jan, Nonintractable migraine, unspecified migraine type G43.009 and Nausea R11.0 [facility] [id number] [place] [address] 134600- 4617 Jul, [facility] [id number] [place] [address] 41171- 8915 Jul, [facility] [address] [place] [address] [id number] Mar, [facility] [id number] [place] [address] 227633- 6812 Mar, [facility] [address] [id number] [place] [address] [id number] Mar, [facility] [address] [place] [address]604- 1684 Mar, [facility] [id number] [place] [address] [id number] Feb, [facility] [address] [place] [address] 257624- 5208 Feb, [facility] [id number], [place] [id number] Jan, [facility] [address] [address] 4[address] Jan, [facility] [address] [place] [address] [id number] Jan, [facility] [address] [place] [address] 59605- 4186 Jan, [facility] [id number], [place] [id number] Dec, [facility] [address] [facility]] [id number] [place] [address]- 2546 Dec, [facility] [address] [facility] [id number][place] [id number] Jul, [facility] [address] [address]- 25[address] Jul, [facility] [address] [facility] [id number][place] [id number] Nov, [facility] [address] [address] 86[address] Nov, [facility] [address] [place] [address] [id number] [address]- 9665 May, [facility] [address] [address]- 7[address] Jan, IMMUNIZATIONS No Known Immunizations SOCIAL HISTORY Never Assessed REASON FOR VISIT EMR-[facility] PLAN OF CARE VITAL SIGNS MEDICATIONS No Known Medications RESULTS No Results PROCEDURES No Known procedures INSTRUCTIONS MEDICATIONS ADMINISTERED No Known Medications MEDICAL (GENERAL) HISTORY Type Description Date Medical History headache Medical History obesity Surgical History tubal ligation 2001 Surgical History fatty tumor removed from neck 1998 Hospitalization History childbirth only
--- OUTSIDE RECORDS SUMMARY | 2018-08-19 03:27 | XMS REPORT ---
Demographics Address [address] [place] [address] Preferred Language Unknown Marital Status Unknown [employer] Affiliation Unknown Race Unknown Ethnic Group Unknown Author Author CHANCE ULLOA Organization [facility] Address [address] [place] [address] Care Team Providers Care Tower Equipment Installer Name Role Phone CHANCE ULLOA Unavailable PROBLEMS Type Condition ICD9-CM Code [id number] Code Onset Dates Condition Status SNOMED Code Problem Acute bronchitis 466.0 Active 66508828 Problem Acute sinusitis, unspecified 461.9 Active 94766757 Problem Acute upper respiratory infections of unspecified site 465.9 Active 08610787 Problem Menstrual irregularity N92.6 Active 71300065 Problem Cervicalgia M54.2 Active 26865893 Problem Depressive disorder, not elsewhere classified 311 Active 39266919 Problem Migraine, unspecified without mention of intractable migraine without mention of status migrainosus 346.90 Active 12431227 Problem Intractable migraine without status migrainosus, unspecified migraine type G43.919 Active 214549228 Problem Nonintractable migraine, unspecified migraine type G43.009 Active 20297180 ALLERGIES No Known Allergies ENCOUNTERS Encounter Location Date Diagnosis [facility] [id number] [place] [address]93 Jun, Viral URI J06.9 and BMI 50.0-59.9, adult Z68.43 [facility] [address] [place], [place] [id number] [place] [address]93 Jun, [facility] [place] [id number] [place] [address]217 [address] Jun, Paronychia of left little finger L03.012 [facility] [address] [place], [place] [id number] [place] [address]67 -[address]381 Mar, Dysuria R30.0 ; Menstrual irregularity N92.6 ; Lumbar back pain M54.5 and BMI 50.0-59.9, adult Z68.43 [place] [address] [place] [id number] [place] [address] Jan, [place] [address] [address] 19 Dec, 2016 Routine gynecological examination Z01.419 ; Screening for breast cancer Z12.31 ; Routine screening for STI (sexually transmitted infection ) Z11.3 ; Trichomoniasis of vagina A59.01 and Group B streptococcal infection A49.1 [place] [id number] [place] [id number] Jun, Pain around right eye H57.11 and Itch of eye, right H57.[address] [id number] Jun, Discomfort of right ear H92.[address] [id number] Feb, Cervicalgia M54.2 and Intractable migraine without status migrainosus, unspecified migraine type G43.919 [place] [address] [id number] [place] [address] 4923 Feb, [address] [id number] Feb, Cervicalgia M54.2 [place] [id number] [place] [address] [id number] Feb, Intractable migraine without status migrainosus, unspecified migraine type G43.919 and Diarrhea, unspecified type R19.7 [place] [address] [place] [address] 09747- 9458 Jan, [place] [id number] [place] [address] [id number] Jan, Nonintractable migraine, unspecified migraine type G43.009 and Nausea R11.0 [place] [address] [address] Jul, [place] [address] [address] Jul, [facility] [address] [id number] [place] [id number] Mar, [facility] [address] [facility] [id number] [place] [address] Mar, [facility] [address] [facility] [id number] [place] [id number] Mar, [facility] [address] [facility] [id number] [place] [address] Mar, [facility] [address] [id number] [place] [id number] Feb, [facility] [address] [facility] [id number] [place] [address] Feb, [facility] [address] [facility] [id number] [place] [id number] Jan, [facility] [address] [address] Jan, [facility] [address] [facility] [id number][place] [id number] Jan, [facility] [address] [address] Jan, [facility] [address] [facility] [id number][place] [id number] Dec, [facility] [address] [facility] [id number] [place] [address] Dec, [facility] [address] [facility] [id number][place] [id number] Jul, [facility] [address] [facility] [id number] [place] [address] Jul, [facility] [address] [facility] [id number][place] [id number] Nov, [facility] [address] [facility] [id number] [place] [address] Nov, [facility] [address] [facility] [id number] [place] [address] May, [facility] [address] [facility] [id number] [place] [address] Jan, IMMUNIZATIONS No Known Immunizations SOCIAL HISTORY Never Assessed REASON FOR VISIT finger pain Pt c/o pain in pinky on L hand after nail was pulled back when finger was jammed, pt c/o swelling and puffyness AMARILIS Bond PLAN OF CARE Activity Details Follow Up prn Reason: VITAL SIGNS Height 64 in 2017-06-23 Weight 347.2 lbs 2017-06-23 Temperature 97.9 degrees Fahrenheit 2017-06-23 Heart Rate 90 bpm 2017-06-23 Respiratory Rate 22 2017-06-23 BMI 59.59 kg/m2 2017-06-23 Blood pressure systolic 124 mmHg 2017-06-23 Blood pressure diastolic 76 mmHg 2017-06-23 MEDICATIONS Medication Instructions Dosage Frequency Start Date End Date Duration Status Migraine Formula 250-250-65 MG Orally every 6 hrs 2 tablets as needed 6h Not-Taking Bactrim DS 800-160 MG Orally Twice a day 1 tablet 12h Jun,Jun 10 day(s) Active DiphenhydrAMINE HCl 50 mg Orally Once a day 1 capsule at bedtime as needed 24h Jun, 30 day(s) Not-Taking Xanax 0.5 MG Orally one time for mri 1 tablet Feb, Not- Taking Flagyl 500 mg Orally Once a day 4 tablets 24h Dec, 1 dose Not- Taking Naproxen 500 MG Orally Twice a day 1 tablet 12h Not-Taking RESULTS No Results PROCEDURES No Known procedures INSTRUCTIONS MEDICATIONS ADMINISTERED No Known Medications MEDICAL (GENERAL) HISTORY Type Description Date Medical History headache Medical History obesity Surgical History tubal ligation 2001 Surgical History fatty tumor removed from neck 1998 Hospitalization History childbirth only
--- OUTSIDE RECORDS SUMMARY | 2018-08-19 03:27 | XMS REPORT ---
Author Author ANYA TRONCOSO Organization [facility] Address [address] [place] [address] Care Team Providers Care Craps Manager Name Role Phone ANYA TRONCOSO Unavailable PROBLEMS Type Condition ICD9-CM Code RKS33-[id number] Code Onset Dates Condition Status SNOMED Code Problem Acute bronchitis 466.0 Active 99210019 Problem Acute sinusitis, unspecified 461.9 Active 80330929 Problem Acute upper respiratory infections of unspecified site 465.9 Active 58904484 Problem Menstrual irregularity N92.6 Active 28117203 Problem Cervicalgia M54.2 Active 40750875 Problem Depressive disorder, not elsewhere classified 311 Active 30597723 Problem Migraine, unspecified without mention of intractable migraine without mention of status migrainosus 346.90 Active 42771974 Problem Intractable migraine without status migrainosus, unspecified migraine type G43.919 Active 050604923 Problem Nonintractable migraine, unspecified migraine type G43.009 Active 72582746 ALLERGIES No Known Allergies ENCOUNTERS Encounter Location Date Diagnosis [facility] [address] [place] [address]182 [address]3776 Jun, Viral URI J06.9 and BMI 50.0-59.9, adult Z68.43 [facility] [address] [place] [address] Jun, [facility] [address] [place] [id number] [place] [address] 02362 -8749 Jun, Paronychia of left little finger L03.012 [facility] [id number] [place] [address] 09551 -4518 Mar, Dysuria R30.0 ; Menstrual irregularity N92.6 ; Lumbar back pain M54.5 and BMI 50.0-59.9, adult Z68.43 [place] [address] [address] Jan, [place] [address] [address] 19 Dec, 2016 Routine gynecological examination Z01.419 ; Screening for breast cancer Z12.31 ; Routine screening for STI (sexually transmitted infection ) Z11.3 ; Trichomoniasis of vagina A59.01 and Group B streptococcal infection A49.[address] [id number] Jun, Pain around right eye H57.11 and Itch of eye, right H57.[address] [id number] Jun, Discomfort of right ear H92.[address] [id number] Feb, Cervicalgia M54.2 and Intractable migraine without status migrainosus, unspecified migraine type G43.919 [place] [address] [place] [id number] [place] [address]18- [address]32 Feb, [address] [id number] Feb, Cervicalgia M54.2 [place] [id number] [place] [address] [id number] Feb, Intractable migraine without status migrainosus, unspecified migraine type G43.919 and Diarrhea, unspecified type R19.7 [place] [address] [place] [address] [id number] [place] [address] 93971- [address]118 Jan, [place] [id number] [place] [address] [id number] Jan, Nonintractable migraine, unspecified migraine type G43.009 and Nausea R11.0 [place] [address] [address] 14 Jul, 2014 [place] [address] [address] Jul, [facility] [address] [id number] [place] [id number] Mar, [facility] [address] [facility] [id number], [place] [address] Mar, [facility] [address] [id number] [place] [id number] Mar, [facility] [address] [facility] [id number], [place] [address] Mar, [facility] [address] [id number] [place] [id number] Feb, [facility] [address] [facility] [id number], [place] [address]- 6[address] Feb, [facility] [address] [facility] [id number] [place] [id number] Jan, [facility] [address], [place] [address] Jan, [facility] [address] [facility] [id number][place] [id number] Jan, [facility] [address], [place] [address] Jan, [facility] [address] [facility] [id number][place] [id number] Dec, [facility] [address] [facility] [id number], [place] [address]- [address] Dec, [facility] [address] [facility] [id number][place] [id number] Jul, [facility] [address] [facility] [id number], [place] [address] Jul, [facility] [address] [facility] [id number][place] [id number] Nov, [facility] [address] [facility] [id number], [place] [address]- [address] Nov, [facility] [address] [facility] [id number], [place] [address]- [address] May, [facility] [address] [facility] [id number] [place] [address] Jan, IMMUNIZATIONS No Known Immunizations SOCIAL HISTORY Never Assessed REASON FOR VISIT pt reports she hasnt had a menstural period for 2 months. last month...reports dark brown discharge that required her to wear a pad. the last 2 weeks...she has had more brown discharge. reports lower back pack. denies dysuria. denies having intercourse for 10 months. kbulllizz PLAN OF CARE Activity Details Follow Up prn Reason: Pending Test Xray : Spine, Lumbar 2-3 views VITAL SIGNS Height 64 in 2017-04-11 Weight 342.8 lbs 2017-04-11 Temperature 98.2 degrees Fahrenheit 2017-04-11 Heart Rate 80 bpm 2017-04-11 Respiratory Rate 20 2017-04-11 BMI 58.84 kg/m2 2017-04-11 Blood pressure systolic 126 mmHg 2017-04-11 Blood pressure diastolic 78 mmHg 2017-04-11 MEDICATIONS Medication Instructions Dosage Frequency Start Date End Date Duration Status DiphenhydrAMINE HCl 50 mg Orally Once a day 1 capsule at bedtime as needed 24h Jun, 30 day(s) Not-Taking Xanax 0.5 MG Orally one time for mri 1 tablet Feb, Not- Taking Migraine Formula 250-250-65 MG Orally every 6 hrs 2 tablets as needed 6h Not-Taking Cyclobenzaprine HCl 10 MG Orally Three times a day 1 tablet as needed 8h Mar, Mar, 7 days Active Flagyl 500 mg Orally Once a day 4 tablets 24h Dec, 1 dose Not- Taking Naproxen 500 MG Orally Twice a day 1 tablet 12h Not-Taking Naproxen 500 MG Orally every 12 hrs 1 tablet with food or milk as needed 12h Mar, Apr, 14 days Active PredniSONE 50 MG Orally Once a day 1 tablet 24h Mar, Mar, 5 days Active RESULTS Name Result Date Reference Range UA LONG DIP (IN HOUSE) 2017-04-11 Lot # [id number] Exp date 2017 11 30 Clarity cloudy Color dk yellow Odor none GLU negative MIHIR negative KET negative SG >=1.030 BLO 3+ pH 5.5 Protein trace URO 0.2 NIT negative NATALEE negative Lot # [id number] Exp date July 2017 PROCEDURES Procedure Date Ordered Result Body Site URINALYSIS, AUTO, W/O SCOPE Apr 11, 2017 INSTRUCTIONS MEDICATIONS ADMINISTERED No Known Medications MEDICAL (GENERAL) HISTORY Type Description Date Medical History headache Medical History obesity Surgical History tubal ligation 2001 Surgical History fatty tumor removed from neck 1998 Hospitalization History childbirth only
--- OUTSIDE RECORDS SUMMARY | 2018-08-19 03:27 | XMS REPORT ---
Author Author SREE MANUEL Organization [facility] Address [address] [place] [address] Care Team Providers Care Manager Office Name Role Phone MANUEL BALBUENA Unavailable PROBLEMS Type Condition ICD9-CM Code WVK97-EU Code Onset Dates Condition Status SNOMED Code Problem Acute bronchitis 466.0 Active 30117336 Problem Acute sinusitis, unspecified 461.9 Active 47559345 Problem Acute upper respiratory infections of unspecified site 465.9 Active 74347224 Problem Menstrual irregularity N92.6 Active 91023388 Problem Cervicalgia M54.2 Active 42867101 Problem Depressive disorder, not elsewhere classified 311 Active 79601270 Problem Migraine, unspecified without mention of intractable migraine without mention of status migrainosus 346.90 Active 92637239 Problem Intractable migraine without status migrainosus, unspecified migraine type G43.919 Active 157864523 Problem Nonintractable migraine, unspecified migraine type G43.009 Active 36817385 ALLERGIES No Known Allergies ENCOUNTERS Encounter Location Date Diagnosis [facility] [id number] [place] [address]28 -[address]67 Jun, Viral URI J06.9 and BMI 50.0-59.9, adult Z68.43 [facility] [id number] [place] [address]148 -[address]40 Jun, [facility] [id number] [place] [address] 93963 -0282 Jun, Paronychia of left little finger L03.012 [facility] [address] [place] [id number] [place] [address] 65224 -[address]49 Mar, Dysuria R30.0 ; Menstrual irregularity N92.6 ; Lumbar back pain M54.5 and BMI 50.0-59.9, adult Z68.43 [place] [address] [address] Jan, [place] [address] [address] Dec, Routine gynecological examination Z01.419 ; Screening for breast cancer Z12.31 ; Routine screening for STI (sexually transmitted infection ) Z11.3 ; Trichomoniasis of vagina A59.01 and Group B streptococcal infection A49.[address] [id number] Jun, Pain around right eye H57.11 and Itch of eye, right H57.[address] [id number] Jun, Discomfort of right ear H92.[address] [id number] Feb, Cervicalgia M54.2 and Intractable migraine without status migrainosus, unspecified migraine type G43.919 [place] [id number] [place] [address] 80368- 7735 Feb, [place] [id number] [place] [id number] Feb, Cervicalgia M54.[address] [id number] Feb, Intractable migraine without status migrainosus, unspecified migraine type G43.919 and Diarrhea, unspecified type R19.7 [place] [address] [id number] [place] [address] 71879- 7314 Jan, [place] [id number] [place] [id number] Jan, Nonintractable migraine, unspecified migraine type G43.009 and Nausea R11.0 [place] [address] [address]- [address] Jul, [place] [address] [address] Jul, [facility] [address] [facility] [id number] [place] [id number] Mar, [facility] [address] [facility] [id number], [place] [address] Mar, [facility] [address] [facility] [id number] [place] [id number] Mar, [facility] [address] [facility] [id number], [place] [address]- [address] Mar, [facility] [address] [facility] [id number] [place] [id number] Feb, [facility] [address]65100[place] [address] Feb, [facility] [address] [place] [id number] [place] [id number] Jan, [facility] [address], [place] [address]- [address] Jan, [facility] [address] [facility] [id number][place] [id number] Jan, [facility] [address] [address]- [address] Jan, [facility] [address] [place] [address] [id number][place] [id number] Dec, [facility] [address] [place] [id number] [address]- [address] Dec, [facility] [address] [facility] [id number][place] [id number] Jul, [facility] [address] [facility] [id number][place] [address] 97[address] Jul, [facility] [address] [facility] [id number][place] [id number] Nov, [facility] [address], [place] [address] 477[address] Nov, [facility] [address] [facility] [id number] [place] [address] 18 May, 2011 [facility] [address] [facility] [id number] [place] [address] 9[address] Jan, IMMUNIZATIONS No Known Immunizations SOCIAL HISTORY Never Assessed REASON FOR VISIT PMH obtained. TGrosdibennett RN PLAN OF CARE VITAL SIGNS MEDICATIONS Unknown Medications RESULTS No Results PROCEDURES No Known procedures INSTRUCTIONS MEDICATIONS ADMINISTERED No Known Medications MEDICAL (GENERAL) HISTORY Type Description Date Medical History headache Medical History obesity Surgical History tubal ligation 2001 Surgical History fatty tumor removed from neck 1998 Hospitalization History childbirth only
--- NOTE | 2018-08-19 03:33 | NUR ---
PT UPDATED TO WAIT. UNDERSTANDING VOICED
[2018-08-19] MEDS ORDERED: ONDANSETRON 4 MG (ZOFRAN) ORAL DISSOLVE TAB PO STA (04:16)
[2018-08-19] MEDS ORDERED: PROCHLORPERAZINE 10 MG/2ML INJ (COMPAZINE) IM ONE (04:30)
[2018-08-19] MEDS ORDERED: KETOROLAC 60 MG/2 ML VIAL IM ONE (04:30)
[2018-08-19] MEDS ORDERED: diphenhydrAMINE 50 MG/ML INJ (BENADRYL) IM ONE ×2 (04:30→05:15)
--- NOTE | 2018-08-19 05:14 | NUR ---
PT UP TO BR W/ ASSIST
[2018-08-19] MEDS ORDERED: PROMETHAZINE INJ 25 MG/ML (PHENERGAN) AMP IM ONE (05:15)
[2018-08-19] MEDS ORDERED: DIAZEPAM 5 MG (VALIUM) TABLET PO ONE (05:15)
[2018-08-19] MEDS ORDERED: methylPREDNISolone 125 MG (Solu-MEDROL) VIAL IM ONE (05:15)
--- NOTE | 2018-08-19 05:23 | ED Headache ---
General Chief Complaint: Head/Cervical Problems Stated Complaint: HEADACHE, THROWING UP Nursing Triage Note: PT TO ED 6 W/ S.O. FOR C/O HEADACHE ONSET 2199. REPORTS NO IMPROVEMENT W/ OTC PAIN MEDS. ALSO C/O N/V W/ CRHISTINA. Nursing Sepsis Screen: No Definite Risk Source: patient History of Present Illness Date Seen by Provider: Aug 19, 2018 Time Seen by Provider: 03:55 Initial Comments PT ARRIVES VIA POV FROM HOME, WITH MALE S.O., BRINGS HER OWN PILLOW FROM HOME PT C/O GLOBAL HEADACHE SINCE 2299 TONIGHT C/O NAUSEA AND VOMITING--HAS VOMITED >5 <10 TIMES NO VISION CHANGES, BUT IS LIGHT SENSITIVE NO FEVER OR RECENT ILLNESS NO ABDOMINAL PAIN NO PARESTHESIAS OR MOTOR DEFICITS HAS CHRONIC FREQUENT HEADACHES, AND HAS HAD A HEADACHE EVERY DAY FOR THE LAST WEEK. HEADACHES USUALLY GET BETTER WITH EXCEDRIN AND MIDOL RAN OUT OF EXCEDRIN AND SO SHE TOOK MIDOL A COUPLE OF HOURS, NO RELIEF. HAS HAD HEADACHES JUST LIKE THIS AND WORSE PT HAS NOT SEEN NEUROLOGIST OR PAIN MANAGEMENT FOR HER HEADACHES PT DOES HAVE CHRONIC BACK PAIN AND WAS SEEN BY PCP A COUPLE OF WEEKS AGO FOR THAT ISSUE, AND WAS PRESCRIBED NAPROXEN AND A MUSCLE RELAXANT--TOOK THOSE EARLIER TODAY/YESTERDAY. HAS NOT DISCUSSED HEADACHES WITH HER PCP. PCP: N[facility]ANT Allergies and Home Medications Allergies Coded Allergies: No Known Allergies (Unverified Allergy, Mild, 01/16/09) Home Medications Butalb/Acetaminophen/Caffeine 1 Each Capsule, 1-2 EACH PO Q6H PRN for HEADACHE Prescribed by: KADEN HANNON on 08/19/18528 Methylprednisolone 4 Mg Tab.ds.pk, 4 MG PO UD Prescribed by: KADEN HANNON on 08/19/18528 Naproxen 500 Mg Tablet, 500 MG PO Q12H Prescribed by: OSWALDO PINO on 11/26/161934 Ondansetron 8 Mg Tab.rapdis, 8 MG PO Q6H Prescribed by: KADEN HANNON on 08/19/18528 Patient Home Medication List Home Medication List Reviewed: Yes Review of Systems Review of Systems Constitutional: no symptoms reported; No fever Eyes: Photophobia Ears, Nose, Mouth, Throat: no symptoms reported Respiratory: no symptoms reported Cardiovascular: no symptoms reported Gastrointestinal: see HPI; No abdominal pain; nausea, vomiting Genitourinary: no symptoms reported Musculoskeletal: no symptoms reported Skin: no symptoms reported Psychiatric/Neurological: See HPI, Headache; Denies Numbness, Denies Paresthesia, Denies Seizure, Denies Tingling, Denies Tremors, Denies Weakness Past Epumora-Hxjqjn-Etcqqq Hx Patient Social History Alcohol Use: Denies Use Recreational Drug Use: No Smoking Status: Former Smoker Former Smoker, Quit: Feb 13, 2016 Recent Foreign Travel: No Contact w/Someone Who Travel: No Recent Infectious Disease Expo: No Recent Hopitalizations: No Physical Abuse: No Sexual Abuse: No Mistreated: No Fear: No Immunizations Up To Date Tetanus Booster (TDap): Less than 5yrs Seasonal Allergies Seasonal Allergies: No Past Medical History Surgeries: Yes (neck) Orthopedic, Tubal Ligation Respiratory: No Cardiac: No Neurological: No Genitourinary: No Gastrointestinal: No Musculoskeletal: No Endocrine: No HEENT: No Cancer: No Psychosocial: No Blood Disorders: No Family Medical History No Pertinent Family Hx Physical Exam Vital Signs Vital Signs - First Documented 08/19/18 03:30 Temp 97.6 Pulse 69 Resp 18 B/P (MAP) 104/71 (82) Pulse Ox 98 O2 Delivery Room Air Capillary Refill : Less Than 3 Seconds Height, Weight, BMI Height: 5'4.00" Weight: 207lbs. oz. 93.365567iw; BMI Method:Stated General Appearance: no apparent distress, obese, other (KEEPS WET WASHCLOTH OVER EYES AND KEEPS BLANKET OVER HER HEAD) HEENT: PERRL/EOMI Neck: normal inspection Cardiovascular: regular rate, rhythm, no murmur Respiratory: normal breath sounds Extremities: normal inspection, no pedal edema Psychiatric: alert, oriented x 3 Crainal Nerves: normal hearing, normal speech, PERRL Coordination/Gait: normal gait Motor/Sensory: no motor deficit, no sensory deficit Skin: normal color, warm/dry Progress/Results/Core Measures Results/Orders My Orders Orders - KADEN HANNON DO Ketorolac Injection (Toradol Injection) (08/19/18 04:30) Ondansetron Oral Dissolve Tab (Zofran (08/19/18 04:16) Prochlorperazine Injection (Compazine In (08/19/18 04:30) Diphenhydramine Injection (Benadryl Inje (08/19/18 04:30) Promethazine Injection (Phenergan Injec (08/19/18 05:15) Diphenhydramine Injection (Benadryl Inje (08/19/18 05:15) Methylprednisolone Sod Succ (Solu-Medrol (08/19/18 05:15) Diazepam Tablet (Valium Tablet) (08/19/18 05:15) Medications Given in ED Current Medications Medications Dose Ordered Sig/Merari Route Start Time Stop Time Status Last Admin Dose Admin Diazepam 5 mg ONCE ONCE PO 08/19/18 05:15 08/19/18 05:19 DC 08/19/18 05:54 5 MG Diphenhydramine HCl 50 mg ONCE ONCE IM 08/19/18 04:30 08/19/18 04:31 DC 08/19/18 04:29 50 MG Diphenhydramine HCl 50 mg ONCE ONCE IM 08/19/18 05:15 08/19/18 05:19 DC 08/19/18 05:54 50 MG Ketorolac Tromethamine 60 mg ONCE ONCE IM 08/19/18 04:30 08/19/18 04:31 DC 08/19/18 04:29 60 MG Methylprednisolone Sodium Succinate 125 mg ONCE ONCE IM 08/19/18 05:15 08/19/18 05:19 DC 08/19/18 05:55 125 MG Prochlorperazine Edisylate 10 mg ONCE ONCE IM 08/19/18 04:30 08/19/18 04:31 DC 08/19/18 04:30 10 MG Promethazine HCl 25 mg ONCE ONCE IM 08/19/18 05:15 08/19/18 05:19 DC 08/19/18 05:55 25 MG Vital Signs/I&O 08/19/18 03:30 Temp 97.6 Pulse 69 Resp 18 B/P (MAP) 104/71 (82) Pulse Ox 98 O2 Delivery Room Air Blood Pressure Mean: 82 Progress Progress Note : Progress Note GIVEN TORADOL, COMPAZINE AND BENADRYL IM, ZOFRAN SL--VERY MINIMAL RELIEF OF SYMPTOMS PT REFUSES TO HAVE AN IV ADDITIONAL MEDICATIONS ORDERED FOR IM AND ORAL DOSING. PT FEELS MUCH BETTER AT DISMISSAL. Departure Impression Primary Impression: EXACERBATION OF CHRONIC HEADACHES Disposition: 01 HOME, SELF-CARE Condition: Improved Departure-Patient Inst. Referrals: [facility] Patient Instructions: Headache, Adult (DC) Add. Discharge Instructions: LOTS OF CLEAR LIQUIDS FOLLOW UP WITH YOUR DR IN 1-2 DAYS IF NO BETTER, RETURN TO ER IF WORSE All discharge instructions reviewed with patient and/or family. Voiced understanding. Scripts Methylprednisolone (Medrol) 4 Mg Tab.ds.pk 4 MG PO UD, #1 PKG Prov: KADEN HANNON DO 08/19/18 Ondansetron (Ondansetron Odt) 8 Mg Tab.rapdis 8 MG PO Q6H for Nausea/Vomiting, #10 TAB Prov: KADEN HANNON DO 08/19/18 Butalb/Acetaminophen/Caffeine (Esgic Capsule) 1 Each Capsule 1-2 EACH PO Q6H PRN for HEADACHE, #10 CAP Prov: KADEN HANNON DO 08/19/18 KADEN HANNON DO Aug 19, 2018 05:23
[2018-08-19] MEDS ORDERED: BUTA1CAP45 PO (05:29)
[2018-08-19] MEDS ORDERED: ONDA8TAB13 PO (05:29)
[2018-08-19] MEDS ORDERED: METH4TAB PO (05:29)
--- NOTE | 2018-08-19 05:50 | NUR ---
THIS RN IN TO ADMINISTER ADDITIONAL MEDS ORDERED. PT STATED "THE LAST TIME I CAME IN THEY GAVE ME A STRONG PAIN MEDICATION". PT CONTINUED TO STATE SHE WAS ALSO GIVEN A "COCKTAIL." THIS RN ASSURED PT THAT SHE WAS INDEED GIVEN A COMMON HEADACHE "COCKTAIL" BUT THAT DR HANNON DID NOT ORDER ANY NARCOTICS FOR HER. PT THEN ASKED WHAT WAS GOING TO BE PRESCRIBED FOR HER TO GO HOME ON. THIS RN INFORMED PT THAT I WOULD FIND ET ET PROVIDE THE INFORMATION FOR HER UPON DISCHARGE.
--- NOTE | 2018-08-19 06:06 | NUR ---
PT UP TO BR W/O ASSIST. NO DISTRESS RO DISCOMFORT NOTED AT THIS TIME.
--- NOTE | 2018-08-19 06:09 | NUR ---
DR HANNON BACK IN W/ PT
[2018-08-19 06:13] VITALS: BP 116/94
== END 2018-08-19 06:13 | disposition home or self-care (01) ==
LOC: EDUNIT# 03:20 → ER 03:22
DX: R51 Headache (principal); G89.29 Other chronic pain; Z79.52 Long term (current) use of systemic steroids; Z87.891 Personal history of nicotine dependence; Z98.51 Tubal ligation status
CPT/HCPCS: 99284